=== PATIENT | female | born 1975 | race African-American/Black ===

== ENCOUNTER → 2017-08-29 | Outpatient (CLI) | payer BC ==
[~2017-08-29] MED LIST: ACETAMINOPHEN-1 EAC1 PO; ALBUTEROL INHAL17 GM IH; CENTRUM SILVER1 EAC4 PO; MUSCLE RELAXER PO; NOHOMEMEDICATIONS; NORCO 5-325 TA1 EACH PO; NORFLEX100 MG PO
== END ==
LOC: RAD 08:40
DX: R07.9 Chest pain, unspecified (principal)

== ENCOUNTER → 2018-01-10 | Outpatient (CLI) | payer BC | LOC: RAD 16:14 | DX: R06.02 Shortness of breath (principal) ==

== ENCOUNTER 2020-01-04 11:43 | Emergency (ER) | payer BC ==
[~2020-01-04] VITALS: Ht 180.3 cm; Wt 61.2 kg
[2020-01-04] MEDS ORDERED: METFORMIN HCL500 M3 PO ×2 (12:04→14:24)
[2020-01-04] MEDS ORDERED: JARDIANCE25 MG PO (12:04)
[2020-01-04] MEDS ORDERED: IRON325 M1 PO (12:05)
[2020-01-04] MEDS ORDERED: SPIRONOLACTONE100 M1 PO (12:05)
[2020-01-04 12:46] LABS: ABSOLUTE NEUTROPHILS 5.1 thou/uL (1.4-8.2); BASOPHILS 0.7 % (0.0-2.0); EOSINOPHILS 0.7 % (0.0-3.0); HEMATOCRIT 41.6 % (37.0-47.0); HEMOGLOBIN 14.2 gm/dL (12.0-15.0); LYMPHOCYTES 23.4 % (24.0-44.0); MCH 31.5 pg (26.0-34.0); MCV 92.5 fL (80.0-100.0); PLATELET COUNT 315 thou/uL (150-400); POLYS 71.2 % (36.0-66.0); RDW 12.6 % (10.5-14.5); WBC 7.2 thou/uL (4.0-11.0)
[2020-01-04 12:50] LABS: POTASSIUM 4.4 mmol/L (3.5-5.1)
[2020-01-04 12:54] LABS: URINE BILIRUBIN NEGATIVE (Negative); URINE BLOOD NEGATIVE (Negative); URINE CLARITY CLEAR; URINE COLOR YELLOW; URINE GLUCOSE-RANDOM* 3+ (Negative); URINE KETONES NEGATIVE (Negative); URINE LEUKOCYTES-REFLEX NEGATIVE (Negative); URINE NITRITE-REFLEX NEGATIVE (Negative); URINE PROTEIN (DIPSTICK) NEGATIVE (Negative); URINE UROBILINOGEN 0.2 E.U./dl (0.2-1.0)
[2020-01-04 12:56] LABS: ALBUMIN 4.1 g/dL (3.4-5.0); TOTAL BILIRUBIN 0.4 mg/dL (0.2-1.0); TOTAL PROTEIN 8.2 g/dL (6.4-8.2)
[2020-01-04 14:59] VITALS: BP 119/72
[2020-01-05 05:08] LABS: GLYCOHEMOGLOBIN (HGB A1C) 8.9 % (4.8-5.6)
== END 2020-01-04 15:05 | disposition home or self-care (01) ==
LOC: ER 11:43
PROVIDERS: Physician Assistant
DX: E11.65 Type 2 diabetes mellitus with hyperglycemia (principal); R51 Headache; F17.200 Nicotine dependence, unspecified, uncomplicated; Z91.041 Radiographic dye allergy status; Z79.899 Other long term (current) drug therapy; Z98.890 Other specified postprocedural states; Z79.84 Long term (current) use of oral hypoglycemic drugs

== ENCOUNTER 2021-03-29 11:49 | Emergency (ER) | payer BC ==
[~2021-03-29] VITALS: Ht 180.3 cm; Wt 59.0 kg
[~2021-03-29 11:49] MED LIST changes: +IRON325 M1 PO; +JARDIANCE25 MG PO; +METFORMIN HCL500 M3 PO; +SPIRONOLACTONE100 M1 PO
[2021-03-29] MEDS ORDERED: OXYBUTYNIN CHLOR5 M1 PO (12:06)
[2021-03-29] MEDS ORDERED: ROSUVASTATIN CA20 MG PO (12:06)
[2021-03-29] MEDS ORDERED: TOUJEO SOL300 UNIT/1 SUBQ (12:06)
[2021-03-29] MEDS ORDERED: FIASP 100100 UNIT/1 SUBQ (12:06)
--- NOTE | 2021-03-29 13:03 | EKG ---
[place] [address] [address] [address] ELECTROCARDIOGRAM REPORT Name: HOLLY HAQUE Room #: REG [facility]#: [id number] Admission: 03/29/21 Attend Phys: Discharge: Date of : 73 Report #: [id number] [facility] ED Test Date: 2021-03-29 Test Time: 12:49:45 Pat Name: HOLLY MCDERMOTT Department: Room: Gender: F Die Cutter Diamond: tania : 1975 Requested By: Sarah Manley Order Number: [id number] MD: Renzo Mcfarland Measurements Intervals [place] Rate: 87 P: 60 [place]: 160 QRS: 26 QRSD: 78 T: 26 QT: 365 QTc: 439 Interpretive Statements Sinus rhythm Early R wave progression Compared to ECG 10/08/2002 11:22:00 No significant changes Electronically Signed On 03-29-2021 13:02:54 CDT by Renzo Mcfarland [email or web address] <ELECTRONICALLY SIGNED> By: Renzo Mcfarland MD, [facility] 03/29/21 1302 1249 1249 Renzo Mcfarland MD, FACC /EPI
[2021-03-29 13:04] LABS: CALCIUM 8.9 mg/dL (8.5-10.1); CREATININE 0.9 mg/dL (0.6-1.0)
[2021-03-29 13:08] LABS: ABSOLUTE NEUTROPHILS 9.6 thou/uL (1.4-8.2); BASOPHILS 0.2 % (0.0-2.0); EOSINOPHILS 0.1 % (0.0-3.0); HEMATOCRIT 35.5 % (37.0-47.0); HEMOGLOBIN 12.1 gm/dL (12.0-15.0); LYMPHOCYTES 8.8 % (24.0-44.0); MCH 30.5 pg (26.0-34.0); MCHC 33.9 g/dL (28.0-37.0); MCV 89.8 fL (80.0-100.0); PLATELET COUNT 308 thou/uL (150-400); POLYS 87.9 % (36.0-66.0); RBC 3.96 mil/uL (4.20-5.00); RDW 12.9 % (10.5-14.5); WBC 10.9 thou/uL (4.0-11.0)
[2021-03-29 13:11] LABS: URINE BILIRUBIN NEGATIVE (Negative); URINE BLOOD NEGATIVE (Negative); URINE CLARITY CLEAR; URINE COLOR YELLOW; URINE GLUCOSE-RANDOM* NEGATIVE (Negative); URINE KETONES NEGATIVE (Negative); URINE LEUKOCYTES-REFLEX NEGATIVE (Negative); URINE NITRITE-REFLEX NEGATIVE (Negative); URINE PROTEIN (DIPSTICK) NEGATIVE (Negative); URINE UROBILINOGEN 0.2 E.U./dl (0.2-1.0)
[2021-03-29 13:14] LABS: ALBUMIN 3.7 g/dL (3.4-5.0); TOTAL BILIRUBIN 0.3 mg/dL (0.2-1.0); TOTAL PROTEIN 7.4 g/dL (6.4-8.2)
[2021-03-29] MEDS ORDERED: ZOFRAN ODT4 MG PO (14:04)
[2021-03-29 14:30] VITALS: BP 120/65
== END 2021-03-29 14:31 | disposition home or self-care (01) ==
LOC: ER 11:49
PROVIDERS: Physician Assistant
DX: R11.2 Nausea with vomiting, unspecified (principal); Z20.822 Contact with and (suspected) exposure to COVID-19; E11.9 Type 2 diabetes mellitus without complications; F17.210 Nicotine dependence, cigarettes, uncomplicated; E78.5 Hyperlipidemia, unspecified; Z98.890 Other specified postprocedural states; Z79.4 Long term (current) use of insulin; Z79.899 Other long term (current) drug therapy; Z91.041 Radiographic dye allergy status; Y90.8 Blood alcohol level of 240 mg/100 ml or more

== ENCOUNTER 2021-08-10 09:57 | Emergency (ER) | payer BC ==
[~2021-08-10] VITALS: Ht 180.3 cm; Wt 59.0 kg
[~2021-08-10 09:57] MED LIST changes: +FIASP 100100 UNIT/1 SUBQ; +OXYBUTYNIN CHLOR5 M1 PO; +ROSUVASTATIN CA20 MG PO; +TOUJEO SOL300 UNIT/1 SUBQ; +ZOFRAN ODT4 MG PO
[2021-08-10 10:09] VITALS: BP 143/92
== END 2021-08-10 11:10 | disposition home or self-care (01) ==
LOC: ER 09:57
DX: U07.1 COVID-19 (principal); E11.9 Type 2 diabetes mellitus without complications; E78.5 Hyperlipidemia, unspecified; Z91.041 Radiographic dye allergy status; Z79.899 Other long term (current) drug therapy; Z98.890 Other specified postprocedural states; Z79.4 Long term (current) use of insulin